=== PATIENT | female | born 1995 | race Caucasian/White ===

== ENCOUNTER 2019-11-13 16:31 | Emergency (ER) | payer BC, OTHER ==
[2019-11-13 16:45] VITALS: TEMP 97.2; BMI 29.2
[2019-11-13 17:03] VITALS: BP 107/67; PULSE 75
--- NOTE | 2019-11-13 17:17 | PDOC ---
History of Present Illness - General Chief Complaint: Syncope/Near Syncope Stated Complaint: SYNCOPE Time Seen by Provider: 11/13/19 16:54 History Source: Patient Exam Limitations: No Limitations - History of Present Illness Initial Comments: 11/13/19 17:18 24y F with no significant PMH presenting to ED for syncope. Pt states she was at the doctor's office getting her blood drawn and she passed out. She woke up and wanted to use the restroom but then passed out again, woke up and vomited. She was laying down on a stretcher when this happened. She states she started to feel flushed, muffled sounds, her vision started to become blurry and tunnel like. This has happened to her in the past usually due to painful stimuli. She states she passed out when she was getting her tattoo and when she twisted her ankle and someone was adjusting it. She denies falling down, headache, changes in vision, chest pain, sob, abdominal pain, n/v/d, recent travel, recent surgeries, leg pain, vaginal bleeding, use of OCPs, recent illnesses, poor po intake, family history of sudden cardiac . LMP was early October and she is irregular. Event was witnessed by PMD and nurse. Denies incontinence PMD: Michael PMH: none PSH: none Meds: none Allergies: nkda Past History - Past Medical History Allergies/Adverse Reactions: Allergies Allergy/AdvReac Type Severity Reaction Status Date / Time No Known Allergies Allergy Verified 11/13/19 16:34 Home Medications: Ambulatory Orders No Home Medications 0 dose .ROUTE UTDICT 01/06/13 COPD: No - Immunization History Immunization Up to Date: Yes - Psycho Social/Smoking Cessation Hx Smoking Status: No Smoking History: Never smoked Number of Cigarettes Smoked Daily: 0 Hx Alcohol Use: No Drug/Substance Use Hx: No Review of Systems - Review of Systems Constitutional: No: Symptoms Reported HEENTM: No: Symptoms Reported Respiratory: No: Symptoms reported, Shortness of Breath Cardiac (ROS): Yes: Syncope. No: Chest Pain, Lightheadedness, Palpitations, Chest Tightness ABD/GI: Yes: Vomiting. No: Diarrhea, Nausea, Abdominal cramping : No: Symptoms Reported Musculoskeletal: No: Symptoms Reported Integumentary: No: Symptoms Reported Neurological: No: Symptoms reported *Physical Exam - Vital Signs Last Vital Signs Temp Pulse Resp BP Pulse Ox 97.2 F L 75 14 107/67 98 11/13/19 16:34 11/13/19 17:02 11/13/19 17:02 11/13/19 17:02 11/13/19 17:02 - Physical Exam General Appearance: Yes: Nourished, Appropriately Dressed. No: Apparent Distress HEENT: positive: EOMI, ISIS, Other (no tongue lacerations). negative: Pale Conjunctivae Neck: positive: Trachea midline, Supple. negative: Lymphadenopathy (R), Lymphadenopathy (L) Respiratory/Chest: positive: Lungs Clear, Normal Breath Sounds. negative: Crackles, Rales, Rhonchi, Stridor, Wheezing Cardiovascular: positive: Regular Rhythm, Regular Rate, S1, S2. negative: Edema , JVD, Murmur Vascular Pulses: Dorsalis-Pedis (R): 2+, Doralis-Pedis (L): 2+ Gastrointestinal/Abdominal: positive: Normal Bowel Sounds, Soft. negative: Tender Musculoskeletal: positive: Normal Inspection. negative: Decreased Range of Motion Extremity: positive: Normal Capillary Refill. negative: Pedal Edema, Swelling, Calf Tenderness Integumentary: positive: Normal Color, Dry, Warm. negative: Pale, Clammy, Diaphoresis, Rash Neurologic: positive: software engineering analyst II-XII NML intact, Fully Oriented, Alert, Normal Mood/ Affect, Normal Response, Motor Strength 5/5 Medical Decision Making - Medical Decision Making 11/13/19 17:57 24y F presenting for syncope. vitals wnl Pt given IVF by EMS. suspect vasovagal syncope: has had similar reactions prior, usually caused by pain. Had flushing, muffled sounds, tunnel vision. Pt describes this episode as similar to prior episodes. No FH of cardiac abnormalities/sudden . Pt does not have pale conjunctiva, no vaginal bleeding, no abdominal pain, no chest pain, no sob, did not fall. Pt awake alert. low suspicion of seizure. Does not require further work up at this time. Will dc home, advise for cardiac f/u. 11/13/19 18:00 Discharge - Discharge Information Problems reviewed: Yes Clinical Impression/Diagnosis: Vasovagal syncope Condition: Good Disposition: HOME - Admission No - Follow up/Referral Referrals: Praneeth Rodriguez MD [Staff Physician] - Nancy Guevara MD [Staff Physician] - Benjamín Mclaughlin MD [Staff Physician] - Shane Lazaro MD [Staff Physician] - - Patient Discharge Instructions Patient Printed Discharge Instructions: DI for Syncope in Adults (Fainting) Additional Instructions: You were seen in the emergency room for passing out. You had an episode of vasovagal syncope. This is relatively common in young adults and is benign. The bay is to know your triggers and sit down when you feel this way with your head between your knees. I recommend following up with a [employer] crew boss to evaluate you soon. Come back to the ER if you start having headaches, have chest pain, feel short of breath or if any new or concerning symptom develops. Thank you - Post Discharge Activity
--- NOTE | 2019-11-13 17:19 | PDOC ---
Attending Attestation - Resident Resident Name: Valeria Wright - ED Attending Attestation I have performed the following: I have examined & evaluated the patient, The case was reviewed & discussed with the resident, I agree w/resident's findings & plan, Exceptions are as noted - HPI HPI: 11/13/19 17:18 24-year-old female was having her blood drawn and had a witnessed syncope She denied any shortness of breath or chest pain HPI she has had several episodes of vasovagal syncope associated with pain or blood draws She states that her blood pressure is usually a little bit on the low side - Physicial Exam PE: 11/13/19 17:19 Well-nourished well-developed 24-year-old female in no acute distress Head normocephalic atraumatic Neck supple Lungs are clear to auscultation CVS is regular rate and rhythm S1-S2 Abdomen is soft and flat Skin no rashes Extremities no edema Neuro alert and oriented x3, motor strength 5 out of 5 bilaterally, no gross focal neuro deficits - Medical Decision Making 11/13/19 17:23 [id number] female who had an apparent vasovagal episode after getting her blood drawn She was at her doctor's office laying on the gurney when this occurred. She then sat up quickly feeling she had to go the bathroom, vomited and passed out again No risk factors for CAD No family history of early cardiac demise She never had chest pain or shortness of breath She has had several episodes of vasovagal syncope after blood draws or related to any kind of pain
== END 2019-11-13 18:03 | disposition home or self-care (01) ==
LOC: JER 16:31
DX: R55 Syncope and collapse (principal)
CPT/HCPCS: 99282-25